=== PATIENT | male | born 1965 | race Caucasian/White ===

== ENCOUNTER 2024-05-14 15:00 | Outpatient (CLI) | payer BC, SELFPAY ==
--- NOTE | 2024-05-14 15:06 | CT_ITS ---
WS: [id number] CT HEAD TECHNIQUE: Noncontrast CT of the head obtained from the skullbase to the vertex. CLINICAL INFORMATION: DIZZINESS/GIDDINESS/FATIGUE/AMNESIA/WEAKNESS COMPARISON: None. DLP: 1037.[address] scans at [facility] use at least one of these dose optimization techniques: automated e xposure control; mA and/or kV adjustment per patient size (includes targeted exams where dose is matc hed to clinical indication); or iterative reconstruction. FINDINGS: No evidence of intracranial hemorrhage or mass effect. Ventricular system and basal cisterns are mcgarry nt. Mild small vessel changes with mild parenchymal volume loss. No extra-axial fluid collections. No evidence of mass or mass effect. Cavernous carotid calcification. Dolichoectatic basilar artery. Paranasal sinuses and mastoid air cells are well aerated. .Normal visualized soft tissues. CT/CT head wo con* [id number] IMPRESSION: 1. No evidence of intracranial hemorrhage or mass effect. 2. No acute intracranial findings.
== END 2024-05-14 15:01 | disposition home or self-care (01) ==
LOC: RAD 15:01
PROVIDERS: Family Provider Family Medicine; PCP Nurse Practitioner Family; Visit Provider Nurse Practitioner Family
DX: R79.82 Elevated C-reactive protein (CRP) (principal); R42 Dizziness and giddiness; R68.89 Other general symptoms and signs; R53.83 Other fatigue; R41.3 Other amnesia; R53.1 Weakness
CPT/HCPCS: 70450

== ENCOUNTER 2024-05-21 15:01 | Outpatient (CLI) | payer BC, SELFPAY ==
--- NOTE | 2024-05-21 15:04 | USCV_ITS ---
Benoit Cordero Age: 59 Gender: M : 1965 Exam Date: 05/21/2024 15:13 Ordering Phys: Pily Auguste NP Technologist: YURI Exam Location: [facility] [place] Indication: Dizziness and Giddiness Risk Factors: Previous Vascular Surgery: Right Brachial BP: / Left Brachial BP: / Right Left Velocity (cm/s) Spectral Plaque Velocity (cm/s) Spectral Plaque Syst/Diast Broadening Syst/Diast Broadening 62.50/ 17.70 Prox CCA 66.80 / 21.40 74.40/ 23.60 Mid CCA 83.80 / 26.20 63.70/ 17.80 Distal CCA 72.00 / 23.50 30.00/ 12.10 Prox ICA 51.30 / 21.90 37.80/ 15.50 Mid ICA 49.80 / 22.90 35.70/ 17.20 Distal ICA 56.30 / 24.80 57.80 ECA 50.20 0.60 ICA/CCA 0.80 Antegrade Vertebral Antegrade 38.90/ 17.70 cm/s 37.60/ 16.80 cm/s Tri Subclavian Tri 94.60 87.80 CONCLUSIONS Right ICA stenosis <50%. Mild atheromatous plaque right carotid bulb/ICA. Left ICA stenosis <50%. Mild atheromatous plaque left carotid bulb/ICA. Normal antegrade Doppler flow noted in the right vertebral artery. Normal antegrade Doppler flow noted in the left vertebral artery. Derek Alberto MD (Electronically Signed) Final Date: 21 May 2024 16:17 S
== END 2024-05-21 15:02 | disposition home or self-care (01) ==
PROVIDERS: PCP Nurse Practitioner Family; Visit Provider Nurse Practitioner Family
DX: R42 Dizziness and giddiness (principal); H53.9 Unspecified visual disturbance
CPT/HCPCS: 93880